=== PATIENT | male | born 1985 | race Two or more races ===

== ENCOUNTER 2024-11-17 17:55 | Emergency (ER) | payer MEDICAID ==
[~2024-11-17] VITALS: Ht 160 cm; Wt 78.4 kg
[2024-11-17 18:57] VITALS: BP 154/90; PULSE 82; RESP 18; TEMP 98.2; O2SAT 96
--- NOTE | 2024-11-17 20:04 | ED.PDOC ---
SOB-HPI HPI Comments This is a 39-year-old male presents to the ED chief complaint cough. Patient reports cough on and off for the past 3 months he states ends up getting sick for 4 days gets fevers has cough fevers go away but the cough continues. History in the past when he has to go to [place] bronchitis and treated with inhaled steroids and antibiotics. States tried antibiotics and [place] which he has notes was amoxicillin notes no improvement. Denies difficulty breathing, chest pain, shortness of breath, vomiting, recent ill contacts. Chief Complaint: Flu like Time Seen by MD: 18:19 Reviewed notes: Nurses Notes, Medications, Allergies Information Source: Patient Mode of Arrival: Ambulatory Past Medical History PAST MEDICAL HISTORY: Denies Surgical History: Denies all surgeries Family History Family History: Reviewed,noncontributory to illness Social History Smoker: Non-Smoker Alcohol: Denies ETOH Use Drugs: Denies Drug Use Constitutional: reports: fever; denies: chills, diaphoresis, fatigue, malaise, sweats, weakness, others EENTM: reports: nasal discharge, throat pain Respiratory: reports: cough; denies: hemoptysis, orthopnea, SOB at rest, shortness of breath, SOB with excertion, stridor, wheezing, others Cardiovascular: denies: chest pain, dizzy spells, diaphoresis, Dyspnea on exertion, edema, irregular heart beat, left arm pain, lightheadedness, palpitations, PND, syncope, others Gastrointestinal: denies: abdomen distended, abdominal pain, blood streaked bowels, constipated, diarrhea, dysphagia, difficulty swallowing, hematemesis, melena, nausea, poor appetite, poor fluid intake, rectal bleeding, rectal pain, vomiting, others Genitourinary: denies: burning, dysuria, flank pain, frequency, hematuria, incontinence, penile discharge, penile sore, pain, testicle pain, testicle swelling, urgency, others Neurological: denies: dizziness, fainting, headache, left sided numbness, left sided weakness, numbness, paresthesia, pre-existing deficit, right sided numbness, right sided weakness, seizure, speech problems, tingling, tremors, weakness, others Musculoskeletal: denies: back pain, gout, joint pain, joint swelling, muscle pain, muscle stiffness, neck pain, others Integumetry: denies: bruises, change in color, change in hair/nails, dryness, laceration, lesions, lumps, rash, wounds, others Allergic/Immunocompromised: denies: Difficulty Healing, Frequent Infections, Hives, Itching, others Hematologic/Lymphatic: denies: anemia, blood clots, easy bleeding, easy bruising, swollen glands, others Endocrine: denies: excessive hunger, excessive sweating, excessive thirst, excessive urination, flushing, intolerance to cold, intolerance to heat, une xplained weight gain, unexplained weight loss, others Psychiatric: denies: anxiety, bipolar disorder, depression, hopeless, panic disorder, schizophrenia, sleepless, suicidal, others Physical Exam General Appearance: No Apparent Distress, Normal HEENT: Normal ENT Inspection, Pharynx Normal, TMs Normal Neck: Full Range of Motion, Non-Tender Respiratory: Expiration, No Respiratory Distress, Normal Breath Sounds, Wheezing Cardiovascular: No Murmur, Normal Peripheral Pulses, Regular Rate/Rhythm Breast Exam: Deferred Gastrointestinal: Non Tender, Soft Genitalia: Deferred Pelvic: Deferred Rectal: Deferred Extremities: Normal capillary refill, Normal inspection, Normal range of motion, Non-tender, No pedal edema Musculoskeletal : Apperance: Normal Neurologic: Alert, 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 Was a procedure done?: No Differential Dx Differential Diagnosis: Asthma, Bronchitis, Pneumonia, Sinusitis X-Ray, Labs, Meds, VS Vital Signs Date Time Temp Pulse Resp B/P (MAP) Pulse Ox O2 Delivery O2 Flow Rate FiO2 11/17/24 18:57 Room Air 11/17/24 18:57 98.2 82 18 154/90 (111) 96 98.2 11/17/24 18:57 98.2 82 18 154/90 (111) 96 X-Ray, Labs, Meds, VS Comment Chest x-ray shows no cardio or pulmonary acute findings. Bronchitis we will start patient on trial of Advair for 2 weeks which patient states he has had in the past along with Z-Campos which has helped. Promethazine DM for the cough. Advised to follow up with his PCP in 2-3 days as necessary. Rest increase p.o. fluids with electrolytes ER return precautions given patient indicates understanding agrees with discharge plan of care Time of 1ST Reevaluation: 20:50 Reevaluation 1ST: Improved Patient Education/Counseling: Diagnosis, Treatment, Prognosis, Need For Follow Up Family Education/Counseling: No Family Present Departure 1 Departure Time of Disposition: 20:50 Impression: Primary Impression: Bronchitis Disposition: HOME / SELF CARE / HOMELESS Condition: Stable e-Prescriptions Promethazine-Dm (Promethazine Dm 6.25-15 mg/5Ml) 1 Ann-Marie Ann-Marie 5 ML PO QID PRN for 3 Days, #60 ML Prov: [place] FITZGERALD 11/17/24 Azithromycin (Azithromycin) 250 Mg Tab 250 MG PO DAILY MDD 500 for 5 Days, #6 TAB 0 Refills 2 TABLETS ORALLY ON DAY ONE, THEN 1 TABLET ORALLY DAILY FOR 4 DAYS Prov: [place] FITZGERALD 11/17/24 Fluticasone-Salmeterol (Advair Diskus 250/50) 1 Puff Ih 1 PUFF INH BID for 14 Days, #1 INHALER Prov: [place] FITZGERALD 11/17/24 Discharged With: Self Critical Care Note Critical Care Time?: No Stability Stability form required: No Heart Score Heart Score: Heart Score Response (Comments) Value History N/A 0 EKG N/A 0 Age <45 0 Risk Factors N/A 0 Troponin N/A 0 Total 0 [place] FITZGERALD Nov 17, 2024 20:04
--- NOTE | 2024-11-17 20:40 | DVH ---
EXAM: XY CHEST TWO VIEWS ROUTINE TECHNIQUE: Two radiographic views of the chest CLINICAL HISTORY: sob COMPARISON: None Findings/Impression: Frontal and lateral chest radiographs demonstrate no acute osseous or superficial soft tissue abnorma lities. The trachea is midline. The cardiac silhouette and mediastinum are within normal limits. No pneumothorax, pleural effusions, or consolidations.
[2024-11-17] MEDS ORDERED: AZIT-43 PO (20:52)
[2024-11-17] MEDS ORDERED: FLUT250M2 INH (20:52)
[2024-11-17] MEDS ORDERED: PROM1SOL4 PO (20:52)
== END 2024-11-17 21:21 | disposition home or self-care (01) ==
LOC: ER 17:55
DX: J40 Bronchitis, not specified as acute or chronic (principal)
CPT/HCPCS: 71046